=== PATIENT | male | born 1975 | race Native Hawaiian/Other Pacific Islander ===

== ENCOUNTER 2018-01-29 15:31 | Observation (INO) | payer OTHER ==
[2018-01-29 15:52] VITALS: BMI 31.5
[2018-01-29 17:24] LABS: BASO # 0.05 K/mm3 (0.0-2.0); BASO % 0.6 % (0.0-3.0); EOS # 0.4 (0.0-0.7); EOS % 4.5 % (1.5-5.0); GRAN # 5.04 (1.4-6.5); GRAN % 63.3 % (50.0-68.0); HEMOGLOBIN 14.8 g/dL (14.0-18.0); LYMPH # 2.2 (1.2-3.4); MEAN CELL VOLUME 81.8 fl (80.0-105.0); MEAN CORPUSCULAR HEMOGLOBIN 27.2 pg (25.0-35.0); MEAN CORPUSCULAR HGB CONC 33.3 g/dl (31.0-37.0); MEAN PLATELET VOLUME 9.8 fl (7.0-11.0); MONO # 0.4 (0.1-0.6); MONO % 4.6 % (1.0-6.0); RBC 5.44 10^6/uL (3.5-6.1); RED CELL DISTRIBUTION WIDTH 13.1 % (11.5-14.5); URINE BILIRUBIN NEGATIVE (NEGATIVE); URINE BLOOD TRACE-INTACT (NEGATIVE); URINE GLUCOSE (UA) NEGATIVE (NEGATIVE); URINE LEUKOCYTE ESTERASE NEGATIVE Leu/uL (NEGATIVE); URINE PROTEIN 30 mg/dL (<30 mg/dL); URINE UROBILINOGEN 0.2 E.U./dL (<1 E.U./dL)
[2018-01-29 17:29] LABS: URINE APPEARANCE SLIGHT-CLOUDY (CLEAR); URINE COLOR DARK YELLOW (YELLOW)
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
[2018-01-29 17:32] LABS: URINE AMORPHOUS SEDIMENT FEW; URINE BACTERIA MOD (NEG); URINE HYALINE CAST 0 - 2 /hpf; URINE WBC 0 - 2 /hpf (0-6)
[2018-01-29 17:35] LABS: ALB/GLOB RATIO 1.3 (1.1-1.8); ALBUMIN 4.2 g/dL (3.0-4.8); ALT/SGPT 43 U/L (7-56); AST/SGOT 36 U/L (17-59); BLOOD UREA NITROGEN 15 mg/dL (7-21); CALCIUM 9.3 mg/dL (8.4-10.5); GFR AFRICAN-AMERICAN > 60; GFR NON-AFRICAN AMERICAN > 60
[2018-01-29 17:46] LABS: TROPONIN I < 0.01 ng/mL
[2018-01-29 17:50] LABS: CK-MB 1.6 ng/mL (0.0-3.6)
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
[2018-01-29] MEDS: Sodium Chloride 0.9% 1,000 ML IV SCH (18:34)
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
[2018-01-30 05:30] LABS: BARBITURATES, UR NEGATIVE (NEGATIVE); BENZODIAZEPINES, UR NEGATIVE (NEGATIVE); OPIATES, UR NEGATIVE (NEGATIVE); PHENCYCLIDINE, UR NEGATIVE (NEGATIVE)
[2018-01-30] MEDS: Sodium Chloride 0.9% 1,000 ML IV SCH (05:32)
[2018-01-30 07:08] LABS: BASO # 0.04 K/mm3 (0.0-2.0); BASO % 0.6 % (0.0-3.0); EOS # 0.5 (0.0-0.7); EOS % 7.1 % (1.5-5.0); GRAN # 3.47 (1.4-6.5); GRAN % 53.2 % (50.0-68.0); HEMOGLOBIN 14.2 g/dL (14.0-18.0); LYMPH # 2.2 (1.2-3.4); MEAN CELL VOLUME 82.2 fl (80.0-105.0); MEAN CORPUSCULAR HEMOGLOBIN 26.9 pg (25.0-35.0); MEAN CORPUSCULAR HGB CONC 32.7 g/dl (31.0-37.0); MEAN PLATELET VOLUME 9.7 fl (7.0-11.0); MONO # 0.3 (0.1-0.6); MONO % 5.1 % (1.0-6.0); RBC 5.28 10^6/uL (3.5-6.1); RED CELL DISTRIBUTION WIDTH 13.1 % (11.5-14.5); WHITE BLOOD COUNT 6.5 10^3/ul (4.5-11.0)
[2018-01-30 07:37] LABS: ALB/GLOB RATIO 1.2 (1.1-1.8); ALBUMIN 3.6 g/dL (3.0-4.8); ALT/SGPT 39 U/L (7-56); AST/SGOT 31 U/L (17-59); BLOOD UREA NITROGEN 15 mg/dL (7-21); CALCIUM 8.4 mg/dL (8.4-10.5); GFR AFRICAN-AMERICAN > 60; GFR NON-AFRICAN AMERICAN > 60
[2018-01-30 08:00] LABS: CK-MB 1.2 ng/mL (0.0-3.6)
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
[2018-01-30 15:00] VITALS: BP 119/68; PULSE 75; RESP 18; TEMP 98.9; O2SAT 96
== END 2018-01-30 18:40 | disposition home or self-care (01) ==
LOC: ED 15:31 → ERH 18:46 → 5RNO 21:24
PROVIDERS: ADMIT Internal Medicine; ATTEND Internal Medicine
DX: S06.0X9A Concussion with loss of consciousness of unspecified duration, initial encounter (principal); M54.2 Cervicalgia; M25.532 Pain in left wrist; V43.52XA Car driver injured in collision with other type car in traffic accident, initial encounter; Y92.410 Unspecified street and highway as the place of occurrence of the external cause; Z82.3 Family history of stroke; Z82.49 Family history of ischemic heart disease and other diseases of the circulatory system; Z83.3 Family history of diabetes mellitus; Z88.0 Allergy status to penicillin
CPT/HCPCS: 36415; 70450; 71045; 72125; 73110; 73502; 80053; 80320; 80324; 80345; 80346; 80349; 80353; 80358; 80361; 81001; 82550; 82553; 83615; 83735; 83992; 84100; 84443; 84484; 85025; 99285; G0378; J7030

== ENCOUNTER 2018-02-06 11:34 | Emergency (ER) | payer OTHER ==
[2018-02-06 11:45] VITALS: BMI 33.0
[2018-02-06 11:57] VITALS: RESP 18
[2018-02-06] MEDS ORDERED: Sodium Chloride 0.9% 1,000 ML IV STA (12:00)
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
[2018-02-06 12:48] LABS: BASO # 0.05 K/mm3 (0.0-2.0); BASO % 0.8 % (0.0-3.0); EOS # 0.3 (0.0-0.7); EOS % 4.5 % (1.5-5.0); GRAN # 3.76 (1.4-6.5); GRAN % 62.3 % (50.0-68.0); HEMOGLOBIN 15.5 g/dL (14.0-18.0); LYMPH # 1.7 (1.2-3.4); LYMPH % 28.3 % (22.0-35.0); MEAN CELL VOLUME 82.2 fl (80.0-105.0); MEAN CORPUSCULAR HEMOGLOBIN 27.2 pg (25.0-35.0); MEAN CORPUSCULAR HGB CONC 33.1 g/dl (31.0-37.0); MEAN PLATELET VOLUME 9.9 fl (7.0-11.0); MONO # 0.3 (0.1-0.6); MONO % 4.1 % (1.0-6.0); RBC 5.69 10^6/uL (3.5-6.1); RED CELL DISTRIBUTION WIDTH 13.1 % (11.5-14.5)
--- NOTE | 2018-02-06 12:51 | CT ---
PROCEDURE: CT HEAD WITHOUT CONTRAST. HISTORY: headache and dizziness x 5 days COMPARISON: 01/29/2018 TECHNIQUE: Axial computed tomography images were obtained through the head/brain without intravenous contrast. Radiation dose: Total exam DLP = 964 mGy-cm. This CT exam was performed using one or more of the following dose reduction techniques: Automated exposure control, adjustment of the mA and/or kV according to patient size, and/or use of iterative reconstruction technique. FINDINGS: HEMORRHAGE: No intracranial hemorrhage. BRAIN: No mass effect or edema. No atrophy or chronic microvascular ischemic changes. VENTRICLES: Unremarkable. No hydrocephalus. CALVARIUM: Unremarkable. PARANASAL SINUSES: Unremarkable as visualized. No significant inflammatory changes. MASTOID AIR CELLS: Unremarkable as visualized. No inflammatory changes. OTHER FINDINGS: There is slight decrease left anterior frontal/medial periorbital tissue swelling compared a prior study. IMPRESSION: No intracranial hemorrhage or mass effect. There is slight decrease left anterior frontal/medial periorbital tissue swelling compared a prior study.
[2018-02-06 12:58] LABS: ALB/GLOB RATIO 1.3 (1.1-1.8); ALBUMIN 4.3 g/dL (3.0-4.8); ALT/SGPT 43 U/L (7-56); AST/SGOT 35 U/L (17-59); BLOOD UREA NITROGEN 17 mg/dL (7-21); CALCIUM 9.1 mg/dL (8.4-10.5); GFR AFRICAN-AMERICAN > 60; GFR NON-AFRICAN AMERICAN > 60
[2018-02-06 13:04] LABS: ACETAMINOPHEN < 10.0 ug/ml (10.0-20.0); SALICYLATE < 1 mg/dL (2.0-20.0)
[2018-02-06 13:09] LABS: TROPONIN I < 0.01 ng/mL
[2018-02-06 13:17] LABS: CK-MB 1.7 ng/mL (0.0-3.6)
[2018-02-06 13:17] LABS: BARBITURATES, UR NEGATIVE (NEGATIVE); BENZODIAZEPINES, UR NEGATIVE (NEGATIVE); OPIATES, UR NEGATIVE (NEGATIVE); PHENCYCLIDINE, UR NEGATIVE (NEGATIVE)
--- NOTE | 2018-02-06 13:44 | CT ---
PROCEDURE: CT Cervical Spine without contrast HISTORY: posterior neck pain COMPARISON: None available. TECHNIQUE: Axial computed tomography images were obtained of the cervical spine without the use of intravenous contrast. Coronal and sagittal reformatted images were created and reviewed. Radiation dose: Total exam DLP = 638 mGy-cm. This CT exam was performed using one or more of the following dose reduction techniques: Automated exposure control, adjustment of the mA and/or kV according to patient size, and/or use of iterative reconstruction technique. FINDINGS: VERTEBRAE: No fracture. Normal alignment. No destructive bony lesion. DISCS/SPINAL CANAL/NEURAL FORAMINA: Left C3-4 uncovertebral hypertrophy encroaches on the left lateral recess. Posterior endplate ridging here also present Right and left C4-5 uncovertebral hypertrophy to right sided vacuum disc phenomena and/or uncovertebral joint phenomenon encroaches on each lateral recess. Posterior endplate ridging here also present. Mild left proximal foraminal encroachment per bony hypertrophic changes [id number] uncovertebral hypertrophy. Mild right lateral recess encroachment. The osseous hypertrophic changes are asymmetrically prominent on the left side markedly compromising the left neural foramen here. The central posterior disc margin appears also appears prominent. Central canal mildly stenotic much less than the left lateral recess and much less than the severe left foraminal stenosis here Discs heights are diffusely narrowed especially C3-4 C4-5 C5-6 and C6-7. . C6-7 subchondral sclerosis noted PARASPINAL SOFT TISSUES: As above OTHER FINDINGS: None. IMPRESSION: Diffuse cervical spondylosis and degenerative disc disease with multi compartmental spinal canal compromise is as above. This is most severe on the left C6-7 neural foramen
[2018-02-06 14:30] LABS: URINE BILIRUBIN NEGATIVE (NEGATIVE); URINE BLOOD NEGATIVE (NEGATIVE); URINE GLUCOSE (UA) NEGATIVE (NEGATIVE); URINE LEUKOCYTE ESTERASE NEGATIVE Leu/uL (NEGATIVE); URINE PROTEIN NEGATIVE mg/dL (<30 mg/dL); URINE UROBILINOGEN 0.2 E.U./dL (<1 E.U./dL)
[2018-02-06 14:32] LABS: URINE APPEARANCE CLEAR (CLEAR)
[2018-02-06 14:33] LABS: URINE COLOR YELLOW (YELLOW)
[2018-02-06 16:00] VITALS: BP 142/89; PULSE 82; TEMP 98.2; O2SAT 96
--- NOTE | 2018-02-06 16:38 | CARD ---
APPROVED REPORT EKG Measurement Heart [id number] <Conclusion> Normal sinus rhythm Nonspecific T wave abnormality Abnormal ECG
== END 2018-02-06 15:10 | disposition home or self-care (01) ==
LOC: ED 11:34
DX: F07.81 Postconcussional syndrome (principal); M48.8X2 Other specified spondylopathies, cervical region
CPT/HCPCS: 70450; 72125; 80053; 80324; 80329; 80345; 80346; 80349; 80353; 80358; 80361; 81003; 82550; 82553; 83615; 83735; 83992; 84484; 85025; 93005; 96374; 96375; 99285; J1885; J2765; J7030